=== PATIENT | female | born 1985 | race Caucasian/White ===

== ENCOUNTER 2016-12-14 08:06 | Day surgery (SDC) | payer MEDICAID ==
[2016-12-14] MEDS: Sodium Chloride 0.9% 1,000 ML IV SCH ×2 (09:05→09:14)
[2016-12-14] MEDS ORDERED: Propofol 200 MG/20 ML SDV ONE ×2 (09:44→10:09)
[2016-12-14] MEDS ORDERED: fentaNYL 100 MCG/2 ML SDV ONE (09:44)
[2016-12-14] MEDS ORDERED: Midazolam 1 MG/ML 2 ML SDV ONE (09:44)
[2016-12-14 11:23] VITALS: BP 115/69
--- NOTE | 2016-12-14 11:40 | OR ---
DATE OF PROCEDURE: 12/14/2016 PROCEDURE: Colonoscopy. FINDINGS: 1. No gross abnormalities. 2. Marginally acceptable colon prep. COMPLICATIONS: None. DIGESTER CAPPER: None. PREOPERATIVE DIAGNOSIS: Family history of colorectal cancer. POSTOPERATIVE DIAGNOSIS: Family history of colorectal cancer. PROCEDURE IN DETAIL: The patient was placed in left lateral decubitus position. Digital rectal exam was performed without abnormality. The scope was introduced and advanced atraumatically to the ileocecal valve. The scope was brought back to the ascending, transverse, descending colon, and retroflexed. The prep was moderately acceptable with soft liquid stool. Multiple attempts were made to suction and irrigate this to ensure approximately 90% luminal surface. No diverticulosis. No masses. No old or new blood. No polyps noted. The patient tolerated the procedure well. Shamar Kelsey MD /[id number]
== END 2016-12-14 11:35 | disposition home or self-care (01) ==
LOC: JP.SDS 08:06
PROVIDERS: ATTEND Surgery
PROC: 0DJD8ZZ Inspection of Lower Intestinal Tract, Via Natural or Artificial Opening Endoscopic (ICD-10-PCS; principal; 2016-12-14)
DX: Z80.0 Family history of malignant neoplasm of digestive organs (principal)
CPT/HCPCS: 45378; J2250; J2704; J3010; J7040

== ENCOUNTER 2020-10-23 17:09 | Emergency (ER) | payer MEDICAID ==
[2020-10-23 17:46] VITALS: BP 115/78; PULSE 64
--- NOTE | 2020-10-23 17:56 | EDM.PDOC ---
ED HPI GENERAL MEDICAL PROBLEM - General Chief Complaint: Laceration Stated Complaint: HURT TOE/LT FOOT Time Seen by Provider: 10/23/20 17:47 Source of Information: Reports: Patient, RN Notes Reviewed History Limitations: Reports: No Limitations - History of Present Illness INITIAL COMMENTS - FREE TEXT/NARRATIVE: 35-year-old female presents emergency department today with cat scratch injury to her left foot this happened within the last 24 hours unfortunately now she has some redness and swelling over digit #2 on her left foot and is very painful - Related Data Allergies Allergy/AdvReac Type Severity Reaction Status Date / Time bupropion HCl Allergy Lethargy Verified 10/23/20 17:39 [From Wellbutrin] iron Allergy Other Verified 10/23/20 17:39 metformin Allergy Indigestion Verified 10/23/20 17:39 Home Meds: Home Meds Cholecalciferol (Vitamin D3) [Vitamin D] 1,000 unit PO DAILY 03/08/15 [History] Cyanocobalamin (Vitamin B-12) [B-12] 1,000 mcg PO DAILY 12/12/16 [History] Levothyroxine [Synthroid] 50 mcg PO DAILY 12/12/16 [History] Past Medical History Gastrointestinal History: Reports: Other (See Below) Other Gastrointestinal History: malabsorbtion 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 Musculoskeletal History: Sciatic nerve pain, herniated discs Neurological History: Reports: Headaches, Chronic, Other (See Below) Other Neuro History: tremors Psychiatric History: Reports: Anxiety, Bipolar, Depression Endocrine/Metabolic History: Reports: Hypothyroidism Other Endocrine/Metabolic History: Patient states, "Pre-diabetes" - Infectious Disease History Infectious Disease History: Reports: Chicken Pox, Measles, Mumps - Past Surgical History GI Surgical History: Reports: None Social & Family History - Tobacco Use Tobacco Use Status *Q: Current Every Day Tobacco User Years of Tobacco use: 20 Packs/Tins Daily: 0.5 - Caffeine Use Caffeine Use: Reports: Coffee, Energy Drinks ED ROS GENERAL - Review of Systems Review Of Systems: See Below Constitutional: Reports: No Symptoms Skin: Reports: Bruising, Rash, Wound ED EXAM, SKIN/RASH Exam: See Below Text/Narrative:: Examination of the left foot I do appreciate a wound at the distal tip of digit #2 it is very tender to the touch it is warm to the touch it is slightly swollen there is redness encroaching up into the dorsal aspect of the foot cellulitis Exam Limited By: No Limitations General Appearance: Alert, WD/WN, No Apparent Distress Course - Vital Signs Last Recorded V/S: Last Vital Signs Temp 97.3 F 10/23/20 17:46 Pulse 64 10/23/20 17:46 Resp 16 10/23/20 17:46 BP 115/78 10/23/20 17:46 Pulse Ox 100 10/23/20 17:46 Departure - Departure Time of Disposition: 17:56 Disposition: Home, Self-Care 01 Condition: Fair Clinical Impression: Cat scratch of left lower leg Qualifiers: Encounter type: initial encounter Qualified Code(s): S80.812A - Abrasion, left lower leg, initial encounter; W55.03XA - Scratched by cat, initial encounter - Discharge Information Instructions: Laceration Care, Adult, [id number] Referrals: Emanuel Mujica [employer] [Primary Care Provider] - Additional Instructions: Take full course of antibiotics please followup with your primary care provider in 3-5 days if not better, please call return to the emergency department with worsening of symptoms.. Sepsis Event Note (ED) - Evaluation Sepsis Screening Result: No Definite Risk - Focused Exam Vital Signs: Vital Signs Temp Pulse Resp BP Pulse Ox 10/23/20 17:46 97.3 F 64 16 115/78 100 10/23/20 17:37 97.3 F 64 16 115/78 100 - Assessment/Plan Plan: Assessment Acuity = acute Site and laterality = cat scratch to left digit number 2 foot Etiology = suspicious for bacterial cause Manifestations = none Location of injury = Home Lab values = none Plan Elected to treat empirically with azithromycin follow-up primary care 3 to 5 days if not better This note was dictated using [employer] recognition software please call with any questions on syntax or grammar.
== END 2020-10-23 18:10 | disposition home or self-care (01) ==
LOC: JP.ED 17:09
DX: S80.812A Abrasion, left lower leg, initial encounter (principal); E03.9 Hypothyroidism, unspecified; Z72.0 Tobacco use; Z79.899 Other long term (current) drug therapy; Z88.8 Allergy status to other drugs, medicaments and biological substances; W55.03XA Scratched by cat, initial encounter
CPT/HCPCS: 99282

== ENCOUNTER 2023-03-16 04:45 | Emergency (ER) | payer MEDICAID ==
[2023-03-16 05:14] VITALS: BP 136/56; PULSE 68
[2023-03-16 05:32] LABS: BASOPHILS ABSOLUTE AUTO 0.04 K/uL (0.00-0.10); BASOPHILS PERCENT AUTO 0.5 % (0.1-1.3); EOSINOPHILS PERCENT AUTO 2.7 % (0.0-5.4); HEMATOCRIT 28.3 % (34.3-46.0); HEMOGLOBIN 8.4 g/dL (11.2-15.5); IMMATURE GRAN PERCENT AUTO 0.1 % (0.0-0.7); LYMPHOCYTES ABSOLUTE AUTO 2.26 K/uL (0.8-3.3); LYMPHOCYTES PERCENT AUTO 30.1 % (11.4-47.7); MEAN CORPUSCULAR HEMOGLOBIN 20.7 pg (31.6-35.5); MEAN CORPUSCULAR HGB CONC 29.7 g/dL (31.6-35.5); MEAN CORPUSCULAR VOLUME 69.7 fL (81.4-99.0); MONOCYTES ABSOLUTE AUTO 0.54 K/uL (0.20-0.90); MONOCYTES PERCENT AUTO 7.2 % (3.3-12.6); NEUTROPHILS ABSOLUTE AUTO 4.46 K/uL (1.0-7.6); NEUTROPHILS PERCENT AUTO 59.4 % (40.0-78.1); PLATELET COUNT,PLT 352 K/uL (130-375); WHITE BLOOD CELL COUNT,WBC 7.5 K/uL (3.2-11.0)
[2023-03-16 05:56] LABS: IMMATURE GRAN ABSOLUTE AUTO 0.01 K/uL (0.00-0.23)
[2023-03-16 05:58] LABS: RED BLOOD CELL COUNT 4.06 M/uL (3.77-5.24)
[2023-03-16 06:01] LABS: ALANINE AMINOTRANSFERASE,ALT 26 U/L (12-78); ALBUMIN 3.5 g/dL (3.4-5.0); ALKALINE PHOSPHATASE 42 U/L (46-116); ANION GAP 8.8 mmol/L (5.0-14.0); ASPARTATE AMNIOTRANSFERASE,AST 20 U/L (15-37); BILIRUBIN TOTAL 0.2 mg/dL (0.2-1.0); BLOOD UREA NITROGEN,BUN 9 mg/dL (7-18); CALCIUM 8.7 mg/dL (8.5-10.1); CARBON DIOXIDE,CO2 28 mmol/L (21-32); CHLORIDE,CL 104 mmol/L (100-108); CREATININE 0.6 mg/dL (0.6-1.0); EST CRCL DRUG DOSING (CG) 116.64 mL/min; ESTIMATED GFR 119 mL/min (>60); GLUCOSE RANDOM 83 mg/dL (74-106); POTASSIUM,K 4.2 mmol/L (3.6-5.2); PROTEIN TOTAL,TP 6.9 g/dL (6.4-8.2); SODIUM,NA 141 mmol/L (140-148); TSH ULTRASENSITIVE 2.939 uIU/mL (0.358-3.740)
== END 2023-03-16 06:40 | disposition home or self-care (01) ==
LOC: JP.ED 04:45
DX: D64.9 Anemia, unspecified (principal); R55 Syncope and collapse; F17.210 Nicotine dependence, cigarettes, uncomplicated; Z88.8 Allergy status to other drugs, medicaments and biological substances; Z91.018 Allergy to other foods; Z20.822 Contact with and (suspected) exposure to COVID-19
CPT/HCPCS: 36415; 80053; 84443; 85025; 99284; U0002

== ENCOUNTER 2024-04-01 09:19 | Day surgery (SDC) | payer MEDICAID ==
[~2024-04-01 09:19] MED LIST: Midazolam 1 MG/ML 2 ML SDV ONE
[2024-04-01] MEDS ORDERED: Propofol 200 MG/20 ML SDV ONE (09:25)
[2024-04-01] MEDS ORDERED: fentaNYL 50 MCG/ML SDV ONE (09:25)
[2024-04-01] MEDS: Sodium Chloride 0.9% 1,000 ML IV SCH (09:46)
[2024-04-01 12:34] VITALS: BP 128/64; PULSE 52
== END 2024-04-01 13:13 | disposition home or self-care (01) ==
LOC: JP.SDS 09:19
PROVIDERS: ATTEND Surgery
DX: R10.13 Epigastric pain (principal); K22.89 Other specified disease of esophagus; J44.9 Chronic obstructive pulmonary disease, unspecified; G47.33 Obstructive sleep apnea (adult) (pediatric); F41.9 Anxiety disorder, unspecified; Z87.891 Personal history of nicotine dependence
CPT/HCPCS: 43239; 45378; 81025; 88305; J2250; J2704; J3010; J7030